=== PATIENT | male | born 1990 | race Caucasian/White ===

== ENCOUNTER 2016-09-09 22:33 | Emergency (ER) | payer BC, OTHER ==
[~2016-09-09] VITALS: Ht 175.3 cm; Wt 62.0 kg
[~2016-09-09 22:33] MED LIST: ADDERALL20 MG PO; CIPRO500 MG PO; FLEXERIL10 MG PO; FLEXERIL5 MG PO; KEFLEX500 MG PO; MOTRIN600 MG PO; MOTRIN800 MG PO; NAPROSYN500 MG PO; NORCO 5/3251 TABLET PO; PERCOCET 5/31 TABLET PO; THERAGRAN1 TABLET PO; ULTRAM50 MG PO; VITAMIN B-1100 MG PO
[2016-09-10] MEDS ORDERED: PERCOCET 5/31 TABLET PO (01:31)
[2016-09-10] MEDS ORDERED: KEFLEX500 MG PO (01:32)
[2016-09-10 01:47] VITALS: BP 139/88
== END 2016-09-10 01:50 | disposition home or self-care (01) ==
LOC: RME 22:33 → EME 22:33 → RME 09-10 01:50
DX: S02.92XA Unspecified fracture of facial bones, initial encounter for closed fracture (principal); S09.90XA Unspecified injury of head, initial encounter; Y04.8XXA Assault by other bodily force, initial encounter; Y07.9 Unspecified perpetrator of maltreatment and neglect; F17.200 Nicotine dependence, unspecified, uncomplicated
CPT/HCPCS: 70450; 70486; 99281; 99284

== ENCOUNTER 2016-12-09 15:45 | Emergency (ER) | payer BC, OTHER ==
[~2016-12-09] VITALS: Ht 175.3 cm; Wt 63.0 kg
[2016-12-09 15:52] VITALS: BP 131/81
[2016-12-09] MEDS ORDERED: OXYCODONE HCL5 MG PO (16:14)
[2016-12-09] MEDS ORDERED: PEN-VEE K,VEET500 MG PO (16:14)
== END 2016-12-09 16:27 | disposition home or self-care (01) ==
LOC: EME 15:45
DX: K02.9 Dental caries, unspecified (principal); K08.89 Other specified disorders of teeth and supporting structures; F17.200 Nicotine dependence, unspecified, uncomplicated; Z88.6 Allergy status to analgesic agent
CPT/HCPCS: 99281; 99283

== ENCOUNTER 2017-01-01 00:05 | Emergency (ER) | payer BC, OTHER ==
[~2017-01-01] VITALS: Ht 175.3 cm; Wt 65.2 kg
[~2017-01-01 00:05] MED LIST changes: +OXYCODONE HCL5 MG PO; +PEN-VEE K,VEET500 MG PO
[2017-01-01] MEDS ORDERED: PERCOCET 5/31 TABLET PO (02:09)
[2017-01-01 02:17] VITALS: BP 132/81
== END 2017-01-01 02:17 | disposition home or self-care (01) ==
LOC: EXP 00:05 → EME 00:05 → EXP 02:17
PROC: 2W3KX1Z Immobilization of Left Finger using Splint (ICD-10-PCS; principal; 2017-01-01)
DX: S62.667A Nondisplaced fracture of distal phalanx of left little finger, initial encounter for closed fracture (principal); W23.0XXA Caught, crushed, jammed, or pinched between moving objects, initial encounter; F17.200 Nicotine dependence, unspecified, uncomplicated
CPT/HCPCS: 73130; 99281; 99284

== ENCOUNTER 2017-01-23 17:04 | Emergency (ER) | payer BC, OTHER ==
[~2017-01-23] VITALS: Ht 175.3 cm; Wt 63.1 kg
[2017-01-23] MEDS ORDERED: PERCOCET 5/31 TABLET PO (19:54)
[2017-01-23] MEDS ORDERED: MOTRIN800 MG PO (19:54)
[2017-01-23 20:25] VITALS: BP 116/73
== END 2017-01-23 20:27 | disposition home or self-care (01) ==
LOC: EME 17:04
PROC: 2W3JX1Z Immobilization of Right Finger using Splint (ICD-10-PCS; principal; 2017-01-23)
DX: S67.194A Crushing injury of right ring finger, initial encounter (principal); S60.141A Contusion of right ring finger with damage to nail, initial encounter; W20.8XXA Other cause of strike by thrown, projected or falling object, initial encounter; Z88.6 Allergy status to analgesic agent
CPT/HCPCS: 73140; 99281; 99284

== ENCOUNTER 2017-03-18 15:14 | Emergency (ER) | payer BC, OTHER ==
[~2017-03-18] VITALS: Ht 175.3 cm; Wt 61.7 kg
[2017-03-18 15:42] LABS: HEMATOCRIT 46.8 % (38.0-50.0); MCH 29.2 PG (29.0-34.0); MCHC 33.5 G/DL (30.0-36.0); MCV 87.2 FL (86-99); MEAN PLAT.VOLUME 9.2 uM^3 (9.0-12.4); PLATELET COUNT 253 K/uL (156-360); RBC DIS.WIDTH-CV 13.1 % (11.8-14.6); RED BLOOD COUNT 5.37 M/uL (4.00-5.50); WHITE BLOOD COUNT 11.7 K/uL (4.1-10.2)
[2017-03-18 15:50] LABS: CHLORIDE 107 mEq/L (99-109); POTASSIUM 4.4 mEq/L (3.7-5.4); SODIUM 139 mEq/L (136-147)
[2017-03-18 15:53] LABS: GLUCOSE 102 mg/dL (70-99)
[2017-03-18 15:54] LABS: ANION GAP 7 MEQ/L (2-14); TOTAL BILIRUBIN 0.7 mg/dL (0.0-1.0)
[2017-03-18 15:56] LABS: ALKALINE PHOSPHATASE 82 IU/L (3-129); GFR ESTIMATE (CALCULATED) > 59 mL/min/
[2017-03-18 15:57] LABS: UREA NITROGEN (BUN) 11 mg/dL (9-23)
[2017-03-18 16:00] LABS: LIPASE 12 U/L (1.0-51.0)
[2017-03-18 16:36] LABS: COLOR YELLOW ((YELLOW))
[2017-03-18 16:37] LABS: GLUCOSE (STRIP) NEGATIVE; LEUKOCYTES MODERATE; NITRITE POSITIVE; PROTEIN (STRIP) TRACE; SPECIFIC GRAVITY 1.027 (1.000-1.030)
[2017-03-18 16:38] LABS: ADD MIUA? YES; BILIRUBIN SMALL; BLOOD TRACE; KETONES NEGATIVE; UROBILINOGEN 0.2 MG/DL (0.2-1.0)
[2017-03-18 17:02] LABS: BACTERIA NONE SEEN /HPF; CASTS NONE SEEN /LPF; CRYSTALS NONE SEEN; EPITHELIAL CELLS 1+ /HPF; MUCUS 1+ /LPF; RED BLOOD CELLS 0-5 /HPF (0-5); UCUL ADDED? NO
[2017-03-18] MEDS ORDERED: LIDODERM 5% P1 PATCH TD (17:09)
[2017-03-18] MEDS ORDERED: ZOFRAN ODT4 MG PO (17:09)
[2017-03-18] MEDS ORDERED: CIPRO500 MG PO (17:09)
[2017-03-18] MEDS ORDERED: OXAYDO5 MG PO (17:36)
[2017-03-18 17:45] VITALS: BP 124/75
== END 2017-03-18 17:46 | disposition home or self-care (01) ==
LOC: EME 15:14
DX: N39.0 Urinary tract infection, site not specified (principal); R11.2 Nausea with vomiting, unspecified; R19.7 Diarrhea, unspecified; G89.29 Other chronic pain; M54.5 Low back pain; F17.200 Nicotine dependence, unspecified, uncomplicated
CPT/HCPCS: 72100; 80053; 81003; 83690; 85027; 99281; 99285

== ENCOUNTER 2017-04-03 00:21 | Emergency (ER) | payer BC, OTHER ==
[~2017-04-03] VITALS: Ht 175.3 cm; Wt 62.6 kg
[~2017-04-03 00:21] MED LIST changes: +LIDODERM 5% P1 PATCH TD; +OXAYDO5 MG PO; +ZOFRAN ODT4 MG PO
[2017-04-03 01:17] LABS: EOSINOPHIL (%) 1.2 % (0-5); EOSINOPHIL COUNT 0.1 K/uL (0-0.3); HEMATOCRIT 42.6 % (38.0-50.0); IMMATURE GRANULOCYTE (%) 0.2 % (0.0-0.7); INSTRUMENT ABS NEUTROPHIL CT 5.4 K/uL; LYMPHOCYTE COUNT 2.4 K/uL (1.0-2.8); MCH 29.1 PG (29.0-34.0); MCHC 33.8 G/DL (30.0-36.0); MCV 86.2 FL (86-99); MEAN PLAT.VOLUME 9.6 uM^3 (9.0-12.4); MONOCYTE (%) 6.1 % (3-12); MONOCYTE COUNT 0.5 K/uL (0-0.8); NEUTROPHIL (%) 63.6 % (45-76); NEUTROPHIL COUNT 5.4 K/uL (1.8-6.4); PLATELET COUNT 269 K/uL (156-360); RBC DIS.WIDTH-CV 12.9 % (11.8-14.6); RBC DIS.WIDTH-SD 40.6 % (39-53); RED BLOOD COUNT 4.94 M/uL (4.00-5.50); WHITE BLOOD COUNT 8.5 K/uL (4.1-10.2)
[2017-04-03 01:25] LABS: ADD MIUA? YES; BILIRUBIN NEGATIVE; BLOOD NEGATIVE; COLOR YELLOW ((YELLOW)); GLUCOSE (STRIP) NEGATIVE; KETONES NEGATIVE; LEUKOCYTES MODERATE; NITRITE NEGATIVE; PROTEIN (STRIP) 30; SPECIFIC GRAVITY 1.029 (1.000-1.030); UROBILINOGEN 0.2 MG/DL (0.2-1.0)
[2017-04-03 01:26] LABS: CHLORIDE 106 mEq/L (99-109); POTASSIUM 3.7 mEq/L (3.7-5.4); SODIUM 142 mEq/L (136-147)
[2017-04-03 01:28] LABS: GLUCOSE 74 mg/dL (70-99)
[2017-04-03 01:29] LABS: ANION GAP 9 MEQ/L (2-14)
[2017-04-03 01:31] LABS: BACTERIA RARE /HPF; EPITHELIAL CELLS RARE /HPF; MUCUS TRACE /LPF; RED BLOOD CELLS 0-5 /HPF (0-5); UCUL ADDED? NO; WHITE BLOOD CELLS 20-30 /HPF (0-5)
[2017-04-03 01:32] LABS: GFR ESTIMATE (CALCULATED) > 59 mL/min/
[2017-04-03 01:33] LABS: UREA NITROGEN (BUN) 14 mg/dL (9-23)
[2017-04-03] MEDS ORDERED: CIPRO500 MG PO (02:01)
[2017-04-03] MEDS ORDERED: PERCOCET 5/31 TABLET PO (02:27)
[2017-04-03] MEDS ORDERED: LIDODERM 5% P1 PATCH TD (02:27)
[2017-04-03] MEDS ORDERED: KEFLEX500 MG PO (02:27)
[2017-04-03 03:06] VITALS: BP 119/71
== END 2017-04-03 03:08 | disposition home or self-care (01) ==
LOC: EME 00:21
PROVIDERS: Emergency Medicine
DX: R31.9 Hematuria, unspecified (principal); R10.9 Unspecified abdominal pain; G89.29 Other chronic pain; M54.9 Dorsalgia, unspecified; F32.9 Major depressive disorder, single episode, unspecified; F17.200 Nicotine dependence, unspecified, uncomplicated
CPT/HCPCS: 74176; 80048; 81003; 85025; 87086; 99281; 99284

== ENCOUNTER 2017-08-25 19:53 | Emergency (ER) | payer BC, OTHER ==
[~2017-08-25] VITALS: Ht 175.3 cm; Wt 68.8 kg
[2017-08-25 20:15] LABS: HEMATOCRIT 44.4 % (38.0-50.0); MCH 30.2 PG (29.0-34.0); MCV 88.8 FL (86-99); MEAN PLAT.VOLUME 9.6 uM^3 (9.0-12.4); PLATELET COUNT 233 K/uL (156-360); RBC DIS.WIDTH-CV 12.9 % (11.8-14.6); RBC DIS.WIDTH-SD 41.9 % (39-53); WHITE BLOOD COUNT 8.7 K/uL (4.1-10.2)
[2017-08-25 20:24] LABS: CHLORIDE 104 mEq/L (99-109); SODIUM 141 mEq/L (136-147)
[2017-08-25 20:26] LABS: GLUCOSE 92 mg/dL (70-99)
[2017-08-25 20:28] LABS: ANION GAP 9 MEQ/L (2-14); TOTAL BILIRUBIN 0.6 mg/dL (0.0-1.0)
[2017-08-25 20:30] LABS: ALKALINE PHOSPHATASE 73 IU/L (3-129); GFR ESTIMATE (CALCULATED) > 59 mL/min/ (58.99-99999)
[2017-08-25 20:31] LABS: UREA NITROGEN (BUN) 11 mg/dL (9-23)
[2017-08-25 20:33] LABS: LIPASE 11 U/L (1.0-51.0)
[2017-08-25 20:47] LABS: ADD MIUA? NO; BILIRUBIN NEGATIVE; BLOOD NEGATIVE; COLOR YELLOW ((YELLOW)); GLUCOSE (STRIP) NEGATIVE; KETONES NEGATIVE; LEUKOCYTES NEGATIVE; NITRITE NEGATIVE; PROTEIN (STRIP) NEGATIVE; SPECIFIC GRAVITY 1.027 (1.000-1.030); UCUL ADDED? NO; UROBILINOGEN 0.2 MG/DL (0.2-1.0)
[2017-08-25] MEDS ORDERED: NAPROXEN500 MG PO (21:37)
[2017-08-25] MEDS ORDERED: FLEXERIL10 MG PO (21:37)
[2017-08-25 22:03] VITALS: BP 134/83
[2017-08-25] MEDS ORDERED: TORADOL10 MG PO (22:40)
== END 2017-08-25 22:22 | disposition home or self-care (01) ==
LOC: EME 19:53
DX: M54.5 Low back pain (principal); R10.9 Unspecified abdominal pain; F32.9 Major depressive disorder, single episode, unspecified; F41.9 Anxiety disorder, unspecified; F17.200 Nicotine dependence, unspecified, uncomplicated; Z88.6 Allergy status to analgesic agent
CPT/HCPCS: 74176; 80053; 81003; 83690; 85027; 99281; 99284

== ENCOUNTER 2017-09-30 16:53 | Emergency (ER) | payer OTHER ==
[~2017-09-30] VITALS: Ht 175.3 cm; Wt 66.0 kg
[~2017-09-30 16:53] MED LIST changes: +NAPROXEN500 MG PO; +TORADOL10 MG PO
[2017-09-30 18:04] LABS: HEMATOCRIT 47.7 % (38.0-50.0); MCH 29.4 PG (29.0-34.0); MCHC 33.5 G/DL (30.0-36.0); MCV 87.5 FL (86-99); RBC DIS.WIDTH-SD 41.7 % (39-53); RED BLOOD COUNT 5.45 M/uL (4.00-5.50)
[2017-09-30 18:18] LABS: ALBUMIN 4.5 g/dL (3.2-4.8); CHLORIDE 106 mEq/L (99-109); POTASSIUM 4.4 mEq/L (3.7-5.4); SODIUM 141 mEq/L (136-147)
[2017-09-30 18:20] LABS: GLUCOSE 92 mg/dL (70-99); TOTAL PROTEIN 7.3 g/dL (6.4-8.3)
[2017-09-30 18:22] LABS: TOTAL BILIRUBIN 0.6 mg/dL (0.0-1.0)
[2017-09-30 18:24] LABS: ALKALINE PHOSPHATASE 79 IU/L (3-129); CREATININE 0.8 mg/dL (0.6-1.3); GFR ESTIMATE (CALCULATED) > 59 mL/min/ (58.99-99999)
[2017-09-30 18:25] LABS: UREA NITROGEN (BUN) 9 mg/dL (9-23)
[2017-09-30 18:26] LABS: AST (GOT) 16 IU/L (2-34)
[2017-09-30 18:27] LABS: ALT (GPT) 13 IU/L (3-49)
[2017-09-30 18:28] LABS: LIPASE 6 U/L (1.0-51.0)
[2017-09-30 19:25] LABS: PLAT.SUFFICIENCY ADEQUATE
[2017-09-30 19:38] LABS: PLATELET COUNT 297 K/uL (156-360)
[2017-09-30] MEDS ORDERED: ZOFRAN ODT4 MG PO (22:53)
[2017-09-30 23:32] VITALS: BP 120/77
== END 2017-09-30 23:32 | disposition home or self-care (01) ==
LOC: EME 16:53 → EXP 16:53
DX: A08.4 Viral intestinal infection, unspecified (principal); G89.29 Other chronic pain; M54.9 Dorsalgia, unspecified; F17.200 Nicotine dependence, unspecified, uncomplicated; F32.9 Major depressive disorder, single episode, unspecified; F41.9 Anxiety disorder, unspecified; Z88.5 Allergy status to narcotic agent
CPT/HCPCS: 80053; 81003; 83690; 85027; 99281; 99284

== ENCOUNTER 2017-12-06 21:03 | Emergency (ER) | payer OTHER ==
[~2017-12-06] VITALS: Ht 175.3 cm; Wt 63.7 kg
[2017-12-07] MEDS ORDERED: PERCOCET 5/31 TABLET PO (00:26)
[2017-12-07 00:52] VITALS: BP 154/76
== END 2017-12-07 00:53 | disposition home or self-care (01) ==
LOC: EME 21:03
DX: S39.012A Strain of muscle, fascia and tendon of lower back, initial encounter (principal); W01.0XXA Fall on same level from slipping, tripping and stumbling without subsequent striking against object, initial encounter; Y99.0 Civilian activity done for income or pay; F17.200 Nicotine dependence, unspecified, uncomplicated; Z88.5 Allergy status to narcotic agent
CPT/HCPCS: 72131; 99281; 99284